=== PATIENT | female | born 1975 | race Caucasian/White ===

== ENCOUNTER 2017-02-23 19:40 | Emergency (ER) | payer OTHER ==
[~2017-02-23] VITALS: Ht 165.1 cm; Wt 79.4 kg
--- NOTE | 2017-02-23 21:28 | DIREP ---
PROCEDURE:XRAY TIB & FIB 2 VW-LT COMPARISON:None. INDICATIONS:FALL, PAIN, BRUISING LT FOOT/LEG FINDINGS: BONES:Normal. JOINTS:Normal. SOFT TISSUES:Normal. OTHER:No additional findings. CONCLUSION:Normal examination. Dictated by: Filiberto Smith Jr. on 02/23/2017 at 09:27 PM
--- NOTE | 2017-02-23 21:31 | DIREP ---
PROCEDURE:XRAY FOOT MIN 3 VWS-LT COMPARISON:None. INDICATIONS:FALL, PAIN, BRUISING LT FOOT,LEG FINDINGS: BONES:Normal. JOINTS:Normal. SOFT TISSUES:Normal. OTHER:No additional findings. CONCLUSION:Normal examination. Dictated by: Filiberto Smith Jr. on 02/23/2017 at 09:28 PM
--- NOTE | 2017-02-23 21:35 | ER.PDOC ---
General Chief Complaint: Extremities Stated Complaint: LEG PAIN Time seen by MD: 21:31 Source: patient Exam Limitations: no limitations History of Present Illness Initial Comments Left leg pain. Hit it against the edge of her porch 5 days ago. Where: home Severity: moderate Allergies: Coded Allergies: No Known Allergies (Unverified , 02/23/17) Past Medical History Medical History: no pertinent history Surgical History: no surgical history LMP (females 10-50): last week Social History Smoking: cigarettes, greater than 1 pack/day Alcohol Use: occassionally Drug Use: none Review of Systems Constitutional: no symptoms reported Respiratory: no symptoms reported Cardiovascular: no symptoms reported Musculoskeletal: see HPI All Other Systems: Reviewed and Negative Physical Exam General Appearance: Alert, No Apparent Distress Foot: nml inspection, non-tender, nml color/temp, skin intact Ankle: tenderness (left) Knee: nml inspection, non-tender, nml ROM, no joint swelling 1 - tenderness with brusing Gait: normal Neuro/Vasc/Tendon: sensation nml, motor nml, no vascular compromise, tendon function nml Neck/Back: nml inspection, non-tender Abdomen: non-tender, pelvis stable EKG/XRAY/CT/US XRAY: leg (Normal left leg) Departure Time of Disposition: 21:34 Disposition: 01 HOME, SELF-CARE Impression: Primary Impression: Contusion of lower leg, left Qualified Codes: S80.12XA - Contusion of left lower leg, initial encounter Condition: Stable Referrals: PCP,UNKNOWN (PCP) PRIMARY CARE PROVIDER Additional Instructions: Ibuprofen F/U with your PCP as needed KARRIE ELAM MD Feb 23, 2017 21:35
--- NOTE | 2017-02-23 21:38 | NUR ---
DISCHARGE DISCHARGE INSTRUCTIONS DISCUSSED. PT VERBALIZED UNDERSTANDING. ENCOURAGED TO RETURN FOR ANY CONCERNS.
== END 2017-02-23 21:38 | disposition home or self-care (01) ==
LOC: ER 19:40
DX: S80.12XA Contusion of left lower leg, initial encounter (principal); F17.210 Nicotine dependence, cigarettes, uncomplicated; W22.8XXA Striking against or struck by other objects, initial encounter; Y93.89 Activity, other specified; Y92.009 Unspecified place in unspecified non-institutional (private) residence as the place of occurrence of the external cause; Y99.8 Other external cause status
CPT/HCPCS: 99284; 73590-LT; 73630-LT